=== PATIENT | female | born 1965 | race Caucasian/White ===

== ENCOUNTER 2017-03-31 18:59 | Emergency (ER) | payer BC ==
--- NOTE | 2017-03-31 19:44 | Emergency Department Record ---
History of Present Illness - General Chief complaint: Rash Stated complaint: RED ALL OVER,STINGS,PULLIAM Time Seen by Provider: 03/31/17 19:39 Source: Patient Mode of Arrival: Ambulatory Limitations: No limitations - History of Present Illness Initial comments: 52 yo female presents to ED with a CC of "redness all over my body", describes a "[id number]" sensation as well as itching. Patient denies exposure to the sun, and reports that she belies she is reacting to something. Patient reports finishing a 7-day course of Augmentin 2 days ago, denies any new foods, detergents, or exposures. Patient denies throat swelling or wheezing/REZA symptoms. Patient reports similar symptoms 3 weeks ago prior to starting antibiotics. MD complaint: Rash Onset/Timin -: Days(s) Location: Generalized Severity: Mild Quality: Burning Consistency: Constant Improves with: None Worsens with: None Context: None Associated symptoms: Denies other symptoms Treatments Prior to Arrival: Benadryl Treatment Prior to Arrival Comment:: allergy medicine 2 hrs ago - Related Data Home Medications Medication Instructions Recorded Confirmed Last Taken Bupropion HCl [Wellbutrin Xl] 300 mg PO DAILY 04/06/15 03/31/17 Unknown Cholecalciferol (Vitamin D3) 5,000 unit PO DAILY 04/06/15 03/31/17 Unknown [Vitamin D3] Levothyroxine Sodium [Synthroid] 50 mcg PO DAILY 04/06/15 03/31/17 Unknown Multivit with Calcium,Iron,Min 1 each PO DAILY 04/06/15 03/31/17 Unknown [Multiple Vitamins For Women] Previous Rx's Medication Instructions Recorded Famotidine [Pepcid] 40 mg PO DAILY #15 tablet 03/31/17 Prednisone [Prednisone 20Mg] 20 mg PO TID #12 tab 03/31/17 Allergies Allergy/AdvReac Type Severity Reaction Status Date / Time NO KNOWN DRUG ALLERGY Allergy Uncoded 02/15/14 10:02 Travel Screening - Travel/Exposure Within Last 30 Days Have you traveled within the last 30 days?: No - Travel/Exposure Within Last Year Have you traveled outside the [place] in the last year?: No - Additonal Travel Details Have you been exposed to anyone with a communicable illness?: No - Travel Symptoms Symptom Screening: None Review of Systems Constitutional: Denies: Chills, Fever, Malaise, Night sweats Eyes: Denies: Eye discharge, Eye pain ENT: Denies: Congestion, Ear pain, Epistaxis Respiratory: Denies: Cough, Dyspnea Cardiovascular: Denies: Chest pain, Dyspnea on exertion Endocrine: Denies: Fatigue, Heat or cold intolerance Gastrointestinal: Denies: Abdominal pain, Nausea, Vomiting Genitourinary: Denies: Incontinence, Retention Musculoskeletal: Denies: Arthralgia, Back pain Skin: Reports: Change in color, Rash. Denies: Bruising, Change in hair/nails Neurological: Denies: Abnormal gait, Confusion, Headache, Seizure Psychiatric: Denies: Anxiety Hematological/Lymphatic: Denies: Anemia, Blood Clots Past Medical History - SOCIAL HISTORY Smoking Status: Never smoker Alcohol Use: None Drug Use: None - RESPIRATORY Hx Respiratory Disorders: Yes Hx Sleep Apnea: Yes (improved with wt. loss) Hx of CPAP: No - CARDIOVASCULAR Hx Cardio Disorders: Yes Hx Deep Vein Thrombosis: Yes (1987 in leg) - NEURO Hx Neuro Disorders: No - GI Hx GI Disorders: No - Hx Genitourinary Disorders: No - ENDOCRINE Hx Endocrine Disorders: Yes Hx Thyroid Disease: Yes - MUSCULOSKELETAL Hx Musculoskeletal Disorders: No - PSYCH Hx Psych Problems: Yes Hx Anxiety: Yes Hx Depression: Yes - HEMATOLOGY/ONCOLOGY Hx Hematology/Oncology Disorders: No Family Medical History Any Significant Family History?: Yes Hx Cancer: Father, Mother *Cancer Comment: kidney, stomach, uterine Hx Diabetes: Grandparents Hx Heart Disease: Mother Hx HTN: Brother/Sister Physical Exam - General General Appearance: Alert, Oriented x3, Cooperative, No acute distress Limitations: No limitations - Head Head exam: Atraumatic, Normocephalic, Normal inspection Head exam detail: negative: Abrasion, Contusion, Marin's sign, General tenderness, Hematoma, Laceration - Eye Eye exam: Normal appearance. negative: Conjunctival injection, Periorbital swelling, Periorbital tenderness, Scleral icterus - ENT Ear exam: negative: Auricular hematoma, Auricular trauma Nasal Exam: negative: Active bleeding, Discharge, Dried blood, Foreign body Mouth exam: negative: Drooling, Laceration, Muffled voice, Tongue elevation - Neck Neck exam: Normal inspection. negative: Meningismus, Tenderness - Respiratory Respiratory exam: Normal lung sounds bilaterally. negative: Rales, Respiratory distress, Rhonchi, Stridor - Cardiovascular Cardiovascular Exam: Regular rate, Normal rhythm, Normal heart sounds - GI/Abdominal GI/Abdominal exam: Soft. negative: Rebound, Rigid, Tenderness - Rectal Rectal exam: Deferred - exam: Deferred - Extremities Extremities exam: Other (rash diffusely present). negative: Calf tenderness, Pedal edema, Tenderness - Back Back exam: Denies: CVA tenderness (R), CVA tenderness (L) - Neurological Neurological exam: Alert, Normal gait, Oriented X3 - Psychiatric Psychiatric exam: Normal affect, Normal mood - Skin Skin exam: Erythema, Rash. negative: Abrasion Distribution of rash: Generalized Description of rash: Macular Course Vital Signs 03/31/17 19:37 Temperature 98 F Pulse Rate [ 105 H Pulse Ox Probe] Respiratory 16 Rate Blood Pressure 145/91 [Left Arm] Pulse Ox 100 - Reevaluation(s) Reevaluation #1: 03/31/17 19:43 Rash symptoms and presentation appear c/w allergic-type reaction, will initiate treatment with Prednisone and Pepcid for 5 day-duration. Patient has no wheezing/throat swelling/uvular edema on examination, and appears stable for discharge home with symptomatic treatment alone. Disposition Disposition: Discharge Clinical Impression: Allergic reaction Qualifiers: Encounter type: initial encounter Qualified Code(s): T78.40XA - Allergy, unspecified, initial encounter Disposition: Home, Self-Care Condition: (2) Stable Instructions: General Allergic Reaction (ED) Additional Instructions: Return to ED if your symptoms worsen or if you have any concerns. Prednisone and Pepcid as directed. Follow-up with your family doctor in 3-5 days as directed. Prescriptions: Famotidine [Pepcid] 40 mg PO DAILY #15 tablet Prednisone [Prednisone 20Mg] 20 mg PO TID #12 tab Forms: Patient Portal Access Time of Disposition: 19:46
[2017-03-31] MEDS ORDERED: PREDNISONE 20 MG TAB PO ONE (19:46)
[2017-03-31] MEDS ORDERED: FAMOTIDINE 20MG TABLET PO ONE (19:46)
== END 2017-03-31 19:56 | disposition home or self-care (01) ==
LOC: ER 18:59
DX: R20.2 Paresthesia of skin (principal); R21 Rash and other nonspecific skin eruption; T78.40XA Allergy, unspecified, initial encounter
CPT/HCPCS: 99282; J7512

== ENCOUNTER 2018-01-09 18:29 | Emergency (ER) | payer BC ==
[2018-01-09] MEDS ORDERED: 0.9 % SODIUM CHLORIDE 1000ML 1,000 ML IV SCH (18:45)
--- NOTE | 2018-01-09 18:51 | Emergency Department Record ---
History of Present Illness - General Stated Complaint: LEFT SIDE OF FACE IS NUMB Time Seen by Provider: 01/09/18 18:42 Source: Patient Mode of Arrival: Ambulatory Limitations: No limitations - History of Present Illness Initial Comments: 52 yo female presents to ED for evaluation of left sided numbness symptoms to the left lower mandible that began approximately 3.5 hours ago. Patient also reports a small area of bleeding to the medial aspect of the left eye. Patient denies any symptoms below her neck, and denies any previous health problems other than hypothyroid. Patient denies HTN, DM, CAD, or PVD history. Onset/Timin -: Hour(s) Location: Left face History of same: Yes (3 weeks ago, resolved) Place: Other Severity: Mild Quality: Numb Improves With: None Worsens With: None On Anticoagulants: No Associated Symptoms: Denies other symptoms - [place]rie Coma Scale Eye Response: (4) Open spontaneously Motor Response: (6) Obeys commands Verbal Response: (5) Oriented [place] Total: 15 - Related Data Home Medications: Previous Rx's Medication Instructions Recorded Prednisone [Prednisone 20Mg] 20 mg PO TID #23 tab 01/09/18 Allergies/Adverse Reactions: Allergies Allergy/AdvReac Type Severity Reaction Status Date / Time No Known Drug Allergies Allergy Verified 01/09/18 19:35 Review of Systems Constitutional: Denies: Chills, Fever, Malaise, Night sweats Eyes: Denies: Eye discharge, Eye pain ENT: Denies: Congestion, Ear pain, Epistaxis Respiratory: Denies: Cough, Dyspnea Cardiovascular: Denies: Chest pain, Dyspnea on exertion Endocrine: Denies: Fatigue, Heat or cold intolerance Gastrointestinal: Denies: Abdominal pain, Nausea, Vomiting Genitourinary: Denies: Incontinence, Retention Musculoskeletal: Denies: Arthralgia, Back pain, Gout, Joint swelling Skin: Denies: Bruising, Change in color Neurological: Reports: Headache, Numbness (left lower aspect of the face). Denies: Abnormal gait, Confusion, Tingling, Tremors Psychiatric: Denies: Anxiety Hematological/Lymphatic: Denies: Anemia, Blood Clots Past Medical History - SOCIAL HISTORY Smoking Status: Never smoker Drug Use: None - RESPIRATORY Hx Respiratory Disorders: Yes Hx Sleep Apnea: Yes (improved with wt. loss) Hx of CPAP: No - CARDIOVASCULAR Hx Cardio Disorders: Yes Hx Deep Vein Thrombosis: Yes (1987 in leg) - NEURO Hx Neuro Disorders: No - GI Hx GI Disorders: No - Hx Genitourinary Disorders: No - ENDOCRINE Hx Endocrine Disorders: Yes Hx Thyroid Disease: Yes - MUSCULOSKELETAL Hx Musculoskeletal Disorders: No - PSYCH Hx Psych Problems: Yes Hx Anxiety: Yes Hx Depression: Yes - HEMATOLOGY/ONCOLOGY Hx Hematology/Oncology Disorders: No Family Medical History Hx Cancer: Father, Mother *Cancer Comment: kidney, stomach, uterine Hx Diabetes: Grandparents Hx Heart Disease: Mother Hx HTN: Brother/Sister Physical Exam - General General Appearance: Alert, Oriented x3, Cooperative, Mild distress Limitations: No limitations - Head Head exam: Atraumatic, Normocephalic, Normal inspection Head exam detail: negative: Abrasion, Contusion, Marin's sign, General tenderness, Hematoma, Laceration - Eye Eye exam: Normal appearance. negative: Conjunctival injection, Periorbital swelling, Periorbital tenderness, Scleral icterus - ENT Ear exam: negative: Auricular hematoma, Auricular trauma Nasal Exam: negative: Active bleeding, Discharge, Dried blood, Foreign body Mouth exam: negative: Drooling, Laceration, Muffled voice, Tongue elevation - Neck Neck exam: Normal inspection. negative: Meningismus, Tenderness - Respiratory Respiratory exam: Normal lung sounds bilaterally. negative: Respiratory distress, Rhonchi, Stridor, Wheezes - Cardiovascular Cardiovascular Exam: Regular rate, Normal rhythm, Normal heart sounds - GI/Abdominal GI/Abdominal exam: Soft. negative: Rebound, Rigid, Tenderness - Rectal Rectal exam: Deferred - exam: Deferred - Extremities Extremities exam: Normal inspection. negative: Calf tenderness, Pedal edema, Tenderness - Back Back exam: Denies: CVA tenderness (R), CVA tenderness (L) - Neurological Neurological exam: Alert, Normal gait, Oriented X3, Other (There is very midl hesitation/weakness to the left face when speaking, resolves when asked to smile.) - Psychiatric Psychiatric exam: Normal affect, Normal mood - Skin Skin exam: Normal color. negative: Abrasion Type of lesion: negative: abrasion Course - Reevaluation(s) Reevaluation #1: 01/09/18 18:51 NIH stroke scale tabulated, patient scores 1. As a result, patient is not a tPA candidate. Will perform CT/CTA for further evaluation and reassess. Reevaluation #2: 01/09/18 19:25 EKG: NSR 78 Normal axis, normal intervals No acute ST-T wave changes Reevaluation #3: 01/09/18 20:07 Labs reviewed and are grossly unremarkable for an acute process Reevaluation #4: 01/09/18 20:48 CT Brain: No acute process CTA Head/Neck: No acute process identified Patient was reassessed, reports that her symptoms have not worsened. Patient's symptoms appear more consistent with possible Elizabeth's palsy as opposed to CVA ( normal labs/CT imaging, no significant risk factors). Will treat with Prednisone for possible [place], with instructions for follow-up with Dr. Mcnamara in 1-3 days as directed. Medical Decision Making - Lab Data Result diagrams: 01/09/18 19:28 01/09/18 19:28 Disposition Disposition: Discharge Clinical Impression: Elizabeth's palsy, Subconjunctival hemorrhage of left eye Disposition: Home, Self-Care Condition: (2) Stable Instructions: Elizabeth Palsy (ED) Additional Instructions: Return to ED if your symptoms worsen or if you have any concerns. Prednisone as directed. Follow-up with Dr. Mcnamara in 1-3 days as directed. Prescriptions: Prednisone [Prednisone 20Mg] 20 mg PO TID #23 tab Forms: Patient Portal Access Time of Disposition: 20:52 Quality - Quality Measures Quality Measures: N/A - Blood Pressure Screening Does Patient Have Any of the Following: No, Active Dx of HTN Blood Pressure Classification: Hypertensive Reading Systolic Measurement: 172 Diastolic Measurement: 104 Screening for High Blood Pressure: < First Hypertensive BP, F/U Documented > [ [id number]] First Hypertensive Follow-up Interventions: Referral to alternative/primary care provider.
[2018-01-09 19:39] LABS: BASO % 0.3 % (0-6); EOS % 4.1 % (0-6); GRAN % 59.4 % (47-80); HEMATOCRIT 36.7 % (35.0-47.0); HEMOGLOBIN 11.8 gm/dl (11.6-16.0); LYMPH % 27.5 % (16-45); MEAN CELL VOLUME 85.7 fl (81-97); MEAN CORPUSCULAR HEMOGLOBIN 27.6 pg (27-33); MEAN CORPUSCULAR HGB CONC 32.2 g/dl (32-36); MEAN PLATELET VOLUME 8.6 fl (7.4-10.4); MONO % 8.7 % (0-9); PLATELET COUNT 363 K/uL (130-400); RED BLOOD COUNT 4.28 M/uL (3.80-5.40); WHITE BLOOD COUNT W/O DIFF 7.5 K/uL (4.2-12.2)
[2018-01-09 19:52] LABS: BLOOD UREA NITROGEN 13 mg/dL (6-20); CREATININE 0.6 mg/dL (0.5-0.9); EST GLOMERULAR FILTRATION RATE > 60 mL/min
[2018-01-09 19:53] LABS: TOTAL PROTEIN 7.5 g/dL (6.6-8.7)
[2018-01-09 19:55] LABS: GLUCOSE,RANDOM 100 mg/dL (74-109)
[2018-01-09 19:57] LABS: ALT/SGPT 12 U/L (<33)
[2018-01-09 19:58] LABS: ALB/GLOB RATIO 1.4 (1.1-1.8); ALBUMIN 4.4 g/dL (4.0-5.0); ALKALINE PHOSPHATASE 93 U/L (35-104); AST/SGOT 19 U/L (10.0-35.0)
[2018-01-09] MEDS ORDERED: PREDNISONE 20 MG TAB PO ONE (20:54)
--- NOTE | 2018-01-10 23:04 | CT SCAN REPORT ---
EXAM: CT SCAN HEAD WO CONTRAST HISTORY: NUMBNESS LEFT SIDE OF FACE. TECHNIQUE: Axial CT scan of the head performed without IV contrast. COMPARISON: None. FINDINGS: No definite acute intracranial hemorrhage identified. No focal mass effect or midline shift apparent. No definite acute infarct or intracranial mass lesion is seen. No depressed calvarial fracture is evident. IMPRESSION: THE EMERGENCY HEAD CT APPEARS NEGATIVE WITH NO DEFINITE ACUTE INTRACRANIAL HEMORRHAGE OR FOCAL MASS EFFECT IDENTIFIED. JOB NUMBER: [id number] [facility]
--- NOTE | 2018-01-10 23:21 | CT ANGIOGRAM REPORT ---
EXAM: CT ANGIOGRAM HEAD/NECK CTA w contrast HISTORY: NUMBNESS LEFT SIDE OF FACE. TECHNIQUE: CTA of the head and neck performed following the intravenous administration of 100 mL of IV contrast. The food technologist has not indicated the brand of contrast and please see the medical record for description of this if this information is desired. Postprocessing on an independent workstation was performed with multiple 3D MIP and volume-rendered series obtained. COMPARISON: No prior CTA of the head or neck with which to compare. FINDINGS: No apical pneumothorax evident. Some degenerative change at the odontoid-anterior arch of C1 articulation and some narrowing of the C6-7 interspace with associated hypertrophic spurring. Right Vertebral: The vertebrals are codominant in size. No high-grade stenosis, occlusion, or dissection of the right vertebral identified. Left Vertebral: The left vertebral appears negative in its course throughout the neck up into the posterior fossa with no high-grade stenosis, occlusion, or dissection evident. There are probably some venous structures adjacent to the left vertebral artery in particular, in the region of C1 neural foramen. Right Carotid: The right common carotid appears negative in its course up to the bifurcation. The bifurcation is negative. The cervical right ICA appears negative. Intracranially, the petrous, cavernous, and paraclinoid segments appear negative. No high-grade stenosis, occlusion, or dissection of the right carotid evident. Left Carotid: The origin of the left common carotid not included off the aortic arch, as the lowermost images begin just above the top of the aortic arch. However, as visualized, the left common carotid appears negative. The bifurcation is negative. The cervical left ICA appears negative. Intracranially , the petrous, cavernous, and paraclinoid segments appear negative. No high- grade stenosis, occlusion, or dissection of the left carotid evident. [place] of [place]: Basilar artery appears negative. PA segments are the major supply for the posterior cerebrals bilaterally. Right A1 and M1 segments appear negative. Anterior communicating artery appears patent. The left A1 and M1 segments appear negative. The posterior communicating arteries are hypoplastic or congenitally absent bilaterally. IMPRESSION: THE CTA OF THE HEAD AND NECK APPEARS ESSENTIALLY NEGATIVE. THERE IS NO HIGH- GRADE STENOSIS, OCCLUSION, OR DISSECTION OF EITHER CAROTID OR VERTEBRAL EVIDENT. ORIGIN OF THE LEFT COMMON CAROTID IS NOT INCLUDED IN THE STUDY. THERE APPEAR TO BE SOME PROMINENT VENOUS STRUCTURES IMMEDIATELY ADJACENT TO THE LEFT VERTEBRAL AT THE LEVEL OF THE LEFT C1 FORAMEN. JOB NUMBER: [id number] [facility]
== END 2018-01-09 21:21 | disposition home or self-care (01) ==
LOC: ER 18:29
DX: G51.0 Bell's palsy (principal); H11.32 Conjunctival hemorrhage, left eye; Z86.718 Personal history of other venous thrombosis and embolism
CPT/HCPCS: 99284 ×2; 85025; 80053; 70496; 70498; 70450; 93005; 93010; Q9967; J7512; J7030

== ENCOUNTER 2019-11-06 06:28 | Day surgery (SDC) | payer BC ==
[2019-11-06] MEDS ORDERED: PROPOFOL 10 MG/ML VIAL IV ONE (06:29)
[2019-11-06] MEDS ORDERED: LIDOCAINE 2% MDV (20MG/ML) 20ML VIAL IV ONE (06:29)
[2019-11-06] MEDS ORDERED: FENTANYL PF 100MCG/2ML VIAL IV ONE (06:29)
--- NOTE | 2019-11-10 06:01 | Operative Note ---
SURGEON: Alexander Rubin MD OPERATION: ESOPHAGOGASTRODUODENOSCOPY. INDICATIONS: This is a 54-year-old female with history of gastroesophageal reflux disease who has had persistent heartburn and abdominal pain and who presented for esophagogastroduodenoscopy. POSTOPERATIVE DIAGNOSES: 1. Normal esophagus. 2. Diffuse gastritis with evidence of gastric banding. 3. Normal duodenum. ANESTHESIA: Sedation is per Anesthesia. Pulse oximetry was monitored throughout the procedure to maintain O2 saturation of 90% or greater. Supplemental oxygen was administered via nasal cannula. Cardiac and vital signs were monitored throughout the duration of the procedure, and they were stable. The procedure of esophagogastroduodenoscopy and risks and benefits of the procedure, including the risk of bleeding and perforation, among others, were explained to the patient who voiced understanding and agreed to have the procedure done. Physical examination was performed, and the patient was found stable for sedation. PROCEDURE: The patient was placed in the left lateral position. Sedation was initiated. A plastic bite block was inserted into the oral cavity. The Olympus [id number] gastroscope was introduced into the oral cavity and advanced to the proximal esophagus without difficulty. The esophageal mucosa was carefully examined upon introduction of the gastroscope. The proximal, mid, and distal esophageal mucosa appeared normal. The gastroscope was then advanced into the stomach, and surveillance of the stomach revealed diffuse erythema along the gastric body and antrum with postsurgical changes consistent with gastric banding. The gastroscope was then advanced to the descending duodenum without difficulty. The duodenal bulb and descending duodenum appeared normal. The gastroscope was then withdrawn into the stomach and retroflexion was performed. There were no other lesions noted. The gastroscope was then straightened and withdrawn while carefully examining the gastric and esophageal mucosa. No other lesions noted. Multiple gastric biopsies were obtained. The patient remained with stable vital signs and was transferred to the recovery room. RECOMMENDATIONS: 1. The patient is to continue on her proton pump inhibitors. 2. I will see her back in the office as needed. Thank you for allowing me to participate in the care of your patient. SUNNI
== END 2019-11-06 08:35 | disposition home or self-care (01) ==
LOC: HOP 06:28
PROVIDERS: ATTEND Internal Medicine Gastroenterology
DX: K29.60 Other gastritis without bleeding (principal); Z98.890 Other specified postprocedural states; E03.9 Hypothyroidism, unspecified